=== PATIENT | female | born 1940 | race Caucasian/White ===

== ENCOUNTER → 2021-03-20 | Outpatient (CLI) | payer MEDICARE ==
[~2021-03-20] MED LIST: REGADENOSON 0.4 MG/5 ML DISP.SYRIN. IV ONE
--- NOTE | 2021-03-20 16:26 | RAD ---
MR#: [id number] Date of Study: 03/20/2021 Ordering Physician: ONEYDA JASSO, Referring Physician: VERONICA LEHMAN Tech: RT Jb (R) (N) APPROVED REPORT Test Type: Pharmacological Stress Nurse/Tech: Laura Test Indications: NICM Medications: See EHR Resting Heart Rate: 73 bpm Resting Blood Pressure: 208/79mmHg Pretest Chest Pain: None Pharm. Details Pharmacologic stress testing was performed using 0.4mg per 5ml of regadenoson given intravenously ove r 7-10 seconds. POST EXERCISE Reason for Termination: Infusion complete Max HR: 127 bpm Max Blood Pressure: 181/75mmHg Blood Pressure response to exercise: Normal blood pressure response during stress. Heart Rate response to exercise: Normal Chest Pain: No. Arrhythmia: No. ST Change: No. INTERPRETATION Stress EKG Conclusion: Baseline EKG showed sinus rhythm with inferolateral ST depressions. Nondiagno stic changes at peak stress. No arrhythmias. Imaging Protocol IMAGE PROTOCOL: Rest Tc-99m/stress Tc-99m 1 day Rest: Stress: Viability: Radiopharm.Tc99m LxrvcwvvmWg75m Sestamibi Dose10.5mCi 33mCi Duration 15min. 15min. Img Date 03/20/2021 03/20/2021 Inj-Img [id number]. 60min. Rest Admin Site:IV - Right AntecubitalAdministrator: RT Jb (R)(N) Stress Admin Site: IV - Right AntecubitalAdministrator: RT Jb (R)(N) STRESS DATA End Diast. Vol.68.0mlAv. Heart Rate68.0bpm End Syst. Vol.16.0mlCO Index BSA0.0L/min Myocardial Mass98.0gEject. Qnxnaywx09.0% Stress Rates Pk. Fill Rate3.10EDV/secLVtime Pk. Fill 238.13msec Pk. Empty Rate4.37ESV/secLVtime Pk. Pjgvp897.84msec /3 Pk. Fill1.56EDV/sec Stress Scores Regional WT1.00Summed WT1.00 Regional WM0.00Summed WM0.00 Study quality was good. Left Ventricular size was Normal at Rest and Stress. Lung uptake was . Left Ventricular ejection fraction is 71%. The rest and stress images show normal perfusion, normal contraction and thickening. LV Perf. Quant 17 Seg. SSS3.00 17 Seg. SRS4.00 17 Seg. SDS1.00 Stress Defect Extent (% LAD)6.90Rest Defect Extent (% LAD)13.80Rev. Defect Extent (% LAD)0.00 Stress Defect Extent (% LCX) 0.00Rest Defect Extent (% LCX)0.00Rev. Defect Extent (% LCX)0.00 Stress Defect Extent (% RCA)0.00Rest Defect Extent (% RCA)0.00Rev. Defect Extent (% RCA)0.00 Stress Defect Extent (% EVONNE)3.90Rest Defect Extent (% EVONNE)7.60Rev. Defect Extent (% EVONNE)0.00 Conclusion 1. Regadenoson cardioisotope stress test did not show any evidence of ischemia or infarct. 2. Normal left ventricular systolic function with ejection fraction calculated at 71%. 3. Low risk for cardiac events. Signed by : Dusty Zazueta, Electronically Approved : 03/20/2021 16:26:00
== END ==
LOC: NM 09:11
PROVIDERS: ATTEND Internal Medicine Cardiovascular Disease
DX: I42.8 Other cardiomyopathies (principal)
CPT/HCPCS: 78452; 93017; A9500; J2785

== ENCOUNTER → 2021-05-13 | Outpatient (CLI) | payer MEDICARE ==
--- NOTE | 2021-05-13 15:15 | RAD ---
INDICATION: Screening for osteopenia/osteoporosis. Postmenopausal screening COMPARISON: None. TECHNIQUE: Bone densitometry was performed through the lumbar spine and proximal femur. IMPRESSION: Lumbar Spine: BMD: 1.1 T-Score: -0.6 Range: Normal Proximal Femur: BMD: 0.76 T-Score: -1.6 Range: Osteopenic World Health Organization Criteria for Bone Density: T-Score: > -1.0: Normal Range < -1.0 to -2.5: Osteopenic Range < -2.5: Osteoporotic Range Electronically signed by: Lucio Oquendo MD (05/13/2021 3:12 PM) [id number]
== END ==
LOC: DXRAD 14:00
PROVIDERS: ATTEND Family Medicine
DX: M85.88 Other specified disorders of bone density and structure, other site (principal); Z78.0 Asymptomatic menopausal state
CPT/HCPCS: 77080

== ENCOUNTER → 2021-12-16 | Outpatient (CLI) | payer MEDICARE ==
--- NOTE | 2021-12-17 07:22 | CARD ---
MR#: [id number] Date of Study: 12/16/2021 Ordering Physician: SALOMÓN LUO, Referring Physician: SALOMÓN LUO, Tech: Luis Bell [facility] APPROVED REPORT EXAM: Two-dimensional and M-mode echocardiogram with Doppler and color Doppler. Other Information Quality : AverageHR: 64bpm Rhythm : Atrial FibrillationTechnically limited study due to body habitus. INDICATION Cardiomyopathy RISK FACTORS Hypertension 2D DIMENSIONS Left Atrium(2D)3.8 (1.6-4.0cm)IVSd0.9 (0.7-1.1cm) Aortic Root(2D)3.1 (2.0-3.7cm)LVDd4.2 (3.9-5.9cm) LVOT Diameter2.0 (1.8-2.4cm)PWd0.8 (0.7-1.1cm) LA Xtbrjv52 (18-58mL)LVDs2.5 (2.5-4.0cm) FS (%) 39.8 %SV56.7 ml LVEF(%)70.8 (>50%) Aortic Valve AoV Peak Kulwinder.177.5cm/sAoV VTI37.0cm AO Peak GR.12.6mmHgLVOT Peak Kulwinder.103.4cm/s LVOT VTI 17.97cmAO Mean GR.7mmHg MARK (VMAX)1.04kx4YTS (VTI)1.45cm2 Mitral Valve MV E Bzhbbvxr503.3cm/sMV E Peak Gr.6mmHg MV DECEL [id number] A Xjuzmmjt18.8cm/s MV E Mean Gr.2mmHgE/A Ratio1.4 Pulmonary Valve PV Peak Slckdksg85.2cm/sPV Peak Grad.3mmHg Tricuspid Valve TR P. Ycssxqex567ak/sTR Peak Gr.34mmHg Pulmonary Vein S1 Lqhgfotg82.3cm/sD2 Asebtcla21.1cm/s LEFT VENTRICLE The left ventricle is normal size. There is normal left ventricular wall thickness. The left ventricu lar systolic function is mildly reduced. EF 45-50% Septal motion suggestive of conduction defect. Oth erwise, there is mild global hypokinesis. Transmitral Doppler flow pattern is Grade II-pseudonormal f illing dynamics. No left ventricle thrombus noted on this study. There is no ventricular septal defec t visualized. There is no left ventricular aneurysm. There is no mass noted in the left ventricle. RIGHT VENTRICLE The right ventricle is normal size. There is normal right ventricular wall thickness. The right ventr icular systolic function is normal. ATRIA The left atrium is mildly dilated. The right atrium size is normal. The interatrial septum is intact with no evidence for an atrial septal defect or patent foramen ovale as noted on 2-D or Doppler imagi ng. AORTIC VALVE The aortic valve is calcified with restricted leaflet motion. Doppler and Color Flow revealed no sign ificant aortic regurgitation. There is no significant aortic valvular stenosis. There is no aortic va lvular vegetation. MITRAL VALVE The mitral valve is thickened but opens well. Mitral annular calcification is borderline. There is no evidence of mitral valve prolapse. There is no mitral valve stenosis. Doppler and Color-flow reveale d mild mitral regurgitation. TRICUSPID VALVE The tricuspid valve is normal in structure and function. Doppler and Color Flow revealed trace to mil d tricuspid regurgitation. There is no tricuspid valve prolapse or vegetation. There is no tricuspid valve stenosis. PULMONIC VALVE Doppler and Color Flow revealed no pulmonic valvular regurgitation. There is no pulmonic valvular michael nosis. GREAT VESSELS The aortic root is normal in size. The ascending aorta is normal in size. The IVC is normal in size a nd collapses >50% with inspiration. PERICARDIAL EFFUSION There is no pleural effusion. There is no evidence of significant pericardial effusion. Critical Notification Critical Value: No <Conclusion> The left ventricular systolic function is mildly reduced. EF 45-50% Septal motion suggestive of conduction defect. Otherwise, there is mild global hypokinesis. Signed by : Salomón Luo, Electronically Approved : 12/17/2021 07:22:21
== END ==
LOC: ECHO 10:31
PROVIDERS: ATTEND Internal Medicine Cardiovascular Disease
DX: I07.1 Rheumatic tricuspid insufficiency (principal); I42.8 Other cardiomyopathies
CPT/HCPCS: 93306